=== PATIENT | female | born 1975 | race Two or more races ===

== ENCOUNTER 2017-05-15 12:30 | Emergency (ER) | payer OTHER ==
[2017-05-15] MEDS ORDERED: Lidocaine 2% VISCOUS* 15 ML UDC PO ONE (14:42)
[2017-05-15] MEDS ORDERED: Clindamycin CAP* 150 MG PO ONE (14:48)
--- NOTE | 2017-05-15 14:54 | UC ---
Dental HPI - HPI Summary HPI Summary: 42n y/o female with ~10 day h/o dental pain, worse R>L, upper teeth, no fever, chills, currently residing in safe house. no recent dental visits, pain with hot, cold foods. no chest pain, N/V. denies discharge in mouth. Patient also believes she is 5 months due to increased abdominal swelling. Has not had menses for 5 months. Has not had check up for abdominal bloating, no + urine testing, and no medical evaluation. Patient states she has a h/o brain tumor for which she wants no treatment and refused treatment in the past + vitamins, tylenol. - History of Current Complaint Chief Complaint: UCDentalProblem Stated Complaint: DENTAL PAIN Time Seen by Provider: 05/15/17 14:27 Hx Obtained From: Patient Hx Last Menstrual Period: 11/17 Onset/Duration: Sudden Onset, Lasting Days Severity: Severe Aggravating: Chewing Alleviating: OTC Meds - oralgel Related History: Swelling - Allergies/Home Medications Allergies/Adverse Reactions: Allergies Allergy/AdvReac Type Severity Reaction Status Date / Time Erythromycin Allergy Bleeding Verified 05/15/17 13:02 Home Medications: Home Medications Acetaminophen [Acetaminophen Extra Stren] 500 mg PO 05/15/17 [History] Albuterol HFA INHALER* [Ventolin HFA Inhaler*] 1 puff INH Q4H PRN 05/15/17 [ History Confirmed 05/15/17] Vitamin [Calna] 1 tab PO 05/15/17 [History] PMH/Surg Hx/FS Hx/Imm Hx Previously Healthy: No - h/o mrkh syndrome per patient - Surgical History Surgical History: None - Social History Alcohol Use: None Substance Use Type: None Smoking Status (MU): Light Every Day Tobacco Smoker Type: Cigarettes Review of Systems ENT: Dental Pain, Ear Ache - R sided, base of ear All Other Systems Reviewed And Are Negative: Yes Physical Exam Triage Information Reviewed: Yes Appearance: Well-Appearing, No Pain Distress, Well-Nourished Vital Signs: Initial Vital Signs Temp 99.0 F 05/15/17 12:55 Pulse 74 05/15/17 12:55 Resp 18 05/15/17 12:55 BP 137/104 05/15/17 12:55 Pulse Ox 100 05/15/17 12:55 Vital Signs Reviewed: Yes Eyes: Positive: Conjunctiva Clear ENT: Positive: Pharynx normal, TMs normal Dental: Positive: Percussion Tenderness @ - multiple teeth with fractures, gross decay., Dental Fracture @ - multipls locations upper and lower, Cervical Lymphadenopathy - minimal submand. Neck: Positive: Supple, Nontender Respiratory: Positive: Lungs clear, Normal breath sounds, No respiratory distress, No accessory muscle use, Crackles - b/l Lungs Cardiovascular: Positive: RRR, No Murmur, Pulses Normal, Brisk Capillary Refill Abdomen Description: Positive: Nontender, No Organomegaly, Soft, Other: - no fundal hieght palpated. + fluid sign, non-tender to deep palpation Musculoskeletal Exam: Normal Musculoskeletal: Positive: Strength Intact, ROM Intact Neurological Exam: Normal Psychological Exam: Normal - patient alert, oriented, answers questions appropriately Skin Exam: Normal Dental Complaint Course/Dx - Course Course Of Treatment: dental caries with toothache, gingivitis. clindamycin given, swish and spit, patient will relief with vis. lidocaine, has follow up with Salome Shah, discussed case with Dr. Whittington. Patient does not wish to transfer to ER for further imaging and do not have US on site currently. - Differential Dx/Diagnosis Differential Diagnosis/Dx: Dental Abscess, Dental Caries, Fractured Tooth Provider Diagnoses: dental caries, dental fractures. Discharge - Discharge Plan Condition: Good Disposition: HOME Prescriptions: Clindamycin Cap(NF) [Clindamycin Cap 300 mg Cap(NF)] 300 mg PO Q6H #40 cap Lidocaine 2% VISCOUS* [Xylocaine 2% Viscous*] 15 ml SWISH SPIT Q4H PRN #1 btl PRN Reason: Pain Patient Education Materials: Gingivostomatitis (ED), Toothache (ED) Referrals: No Primary Care Phys,NOPCP [Primary Care Provider] - Additional Instructions: - Follow up with dentist within 2-5 days for evaluation - Take antibiotics as directed - Lidocaine swish and spit for pain control orally- DO NOT SWALLOW - Tylenol as needed for pain control - Follow up with Dr. Shah for medical management regarding abdominal bloating
== END 2017-05-15 16:13 | disposition home or self-care (01) ==
LOC: UCEAST 12:30
DX: K02.9 Dental caries, unspecified (principal); S02.5XXA Fracture of tooth (traumatic), initial encounter for closed fracture; Y92.9 Unspecified place or not applicable; Z32.02 Encounter for pregnancy test, result negative; D49.6 Neoplasm of unspecified behavior of brain; Z72.0 Tobacco use
CPT/HCPCS: 84702; 99202; 99203; A9270-GY; G0463

== ENCOUNTER 2017-10-10 11:21 | Emergency (ER) | payer OTHER ==
--- OUTSIDE RECORDS SUMMARY | 2017-10-10 11:40 | XMS REPORT ---
:1975 External Reference #:[id number] Author Organization [facility] Address [address] [address] Phone [phone] Care Team Providers Name Role Phone Patricia Hauser MD Primary Care Physician Unavailable Payers Type Date Identification Numbers Payment Provider Subscriber Commercial Policy Number: [id number] [employer] Name: [id number] [address] PayID: [id number] [place] [address] Problems Description No Information Family History Date Family Member(s) Problem(s) Comments Father Cancer Mother Diabetes Social History Type Date Description Comments Marital Status ETOH Use Denies alcohol use Smoking Light tobacco smoker (10 or fewer cigarettes/day) Recreational Drug Use Denies Drug Use Has used IV drugs Daily Caffeine Consumes on average 3 cups of regular coffee per day Exercise Type/Frequency Exercises regularly Allergies, Adverse Reactions, Alerts Date Description Reaction Status Severity Comments 05/24/2017 Erythromycin active Medications Medication Date Status Form Strength Qnty SIG Indications Ordering Provider Ventolin HFA 05/24/ Active Aerosol 108(90Base 18unit 2 puffs Shakeel 2016 ) mcg/Act s by mouth ALFONSO Shah four times a day as needed Lidocaine 05/24/ Active 1 tsp q 4 Shakeel 2017 hours as ALFONSO Shah needed Omeprazole 05/24/ Active Capsules 40mg 30caps 1 by R10.[address] tmi Shah NP every day Nitroglycerin / Active Tablets 0.4mg 30tabs 1 sl Shakeel 0000 Sub q5mins x3 ALFONSO Shah as needed for chest pain Clindamycin HCL / Active Capsules 300mg 1 tabs by Unknown 0000 mouth Q 6 hours x 10 days Tylenol 00/00/ Active Capsules 325mg 2 tablets Unknown 0000 every 4 hours as needed for pain Vital Signs Date Vital Result Comment 09/27/2017 Weight 196.00 lb Heart Rate 76 /min BP Systolic 110 mmHg BP Diastolic 66 mmHg Body Temperature 98.1 F O2 % BldC Oximetry 97 % 05/24/2017 Height 70 inches 5'10" Weight 185.00 lb Heart Rate 86 /min BP Systolic 124 mmHg BP Diastolic 84 mmHg Body Temperature 98.9 F O2 % BldC Oximetry 98 % BMI (Body Mass Index) 26.5 kg/m2 Results Description No Information Procedures Description No Information Encounters Type Date Location Provider CPT E/M Dx Office Visit 05/24/2017 3:00p [facility] [address] [place] [address] K08.89 [place] R19.5 R10.9 Plan of Care 09/27/2017 - Shakeel Shah, NPR00.2 PalpitationsNew Orders:EKGHolter MonitorComments:For your palpitations I am ordering some labs and would like you to do a holter monitor. This is a device that you will wear for 24 hours that will monitor your hearts activity. If you have palpitations that are not subsiding or are associated with singificant blurred vision, dizziness, shortness of breath, nausea, or chest pain seek medical attention.R40.0 SomnolenceReferral:[facility], Sleep [facility]ord,Diag/HrjijaY60.9 Chest pain, unspecifiedNew Orders:Stress Test, Treadmill, No ThdufnnH65.02 Shortness of breath
[2017-10-10 12:05] LABS: ABS Basophils 0.1 10^3/ul (0-0.2); ABS Eosinophils 0.3 10^3/ul (0-0.6); ABS Lymphocytes 2.3 10^3/ul (1.0-4.8); ABS Monocytes 0.7 10^3/ul (0-0.8); ABS Neutrophils 5.4 10^3/ul (1.5-7.7); ABS Nucleated RBC 0 10^3/ul; Eosinophil % 3.8 % (0-6); Hematocrit 45 % (35-47); Hemoglobin 15.7 g/dl (12.0-16.0); Lymphocyte % 25.5 % (25-47); Mean Corpuscular HGB Conc 35 g/dl (31-36); Mean Corpuscular Hemoglobin 31 pg (27-31); Mean Corpuscular Volume 89 fL (80-97); Mean Platelet Volume 8 um3 (7.4-10.4); Nucleated Red Blood Cells % 0; Platelet Count 215 10^3/ul (150-450); Red Blood Count 5.12 10^6/ul (4.0-5.4); Red Cell Distribution Width 14 % (10.5-15); White Blood Count 8.8 10^3/ul (3.5-10.8)
[2017-10-10 12:20] LABS: EGFR Non-African American 69.3 (>60)
[2017-10-10 12:31] LABS: Urine Appearance Clear; Urine Blood Negative (Negative); Urine Color Yellow; Urine Ketones Negative (Negative); Urine Protein Negative (Negative); Urine Specific Gravity 1.012 (1.010-1.030); Urine Urobilinogen Negative (Negative)
--- NOTE | 2017-10-10 14:26 | ED ---
Chapin Campo Julia, scribed for Elijah Sheldon MD on 10/10/17 at 1200 . Abdominal Pain/Female - HPI Summary HPI Summary: This patient is a 42 year old F BIBA to [facility] with a chief complaint of sudden R flank pain this morning after urination. Patient reports bladder filing. Patient denies pain with urination, discharge, or hematuria. Pt states hx of MO. Denies hx of kidney stones. - History of Current Complaint Chief Complaint: EDUrogenitalProblems Stated Complaint: FLANK PAIN Hx Obtained From: Patient Onset/Duration: Sudden Onset, Still Present Timing: Constant Pain Intensity: 0 Location: Flank - R Character: Tearing - "ripping" Aggravating Factor(s): Other: - urination Allergies/Adverse Reactions: Allergies Allergy/AdvReac Type Severity Reaction Status Date / Time MS Erythromycin Allergy Bleeding Verified 05/15/17 13:02 [Erythromycin] PMH/Surg Hx/FS Hx/Imm Hx Cardiovascular History: Reports: Hx Myocardial Infarction Respiratory History: Reports: Hx Asthma, Hx Chronic Obstructive Pulmonary Disease (COPD) - Cancer History Cancer Type, Location and Year: brain CA Infectious Disease History: No Infectious Disease History: Denies: Traveled Outside the [place] in Last 30 Days - Family History Known Family History: Positive: Diabetes - Social History Alcohol Use: reports in recovery Substance Use Type: Reports: Cocaine, Marijuana, Synthetic Drugs, Other Substance Use Comment - Amount & Last Used: 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 Smoking Status (MU): Light Every Day Tobacco Smoker Type: Cigarettes Review of Systems Positive: Abdominal Pain - R flank Genitourinary: Other - "bladder filling" Negative: dysuria, discharge, hematuria All Other Systems Reviewed And Are Negative: Yes Physical Exam - Summary Physical Exam Summary: Appearance: Well-appearing, Well-nourished, no pain, transsexual with breat implants Skin: Warm, Dry, No rash Eyes: Normal, PERRL, EOMI, sclera anicteric ENT: Normal Neck: Supple, nontender Respiratory: Clear to auscultation Cardiovascular: S1, S2, no murmur, no rub, no gallop Abdomen: Soft, nontender, no organomegaly, protuberant abdomen Bowel sounds: Present Musculoskeletal: Normal, Strength/ROM Intact, no edema, pulses symmetrical Neurological: Normal, A&Ox3, cranial nerves II-XII WNL, follows commands, gait not tested, sensation intact to pin and light touch Psychiatric: affect normal, behavior appropriate, dressed appropriately, judgment intact Triage Information Reviewed: Yes Vital Signs On Initial Exam: Initial Vitals Temp Pulse Resp BP Pulse Ox 98.8 F 71 18 130/97 98 10/10/17 11:23 10/10/17 11:23 10/10/17 11:23 10/10/17 11:23 10/10/17 11:23 Vital Signs Reviewed: Yes Diagnostics - Vital Signs Vital Signs Temp Pulse Resp BP Pulse Ox 10/10/17 11:23 98.8 F 71 18 130/97 98 - Laboratory Lab Results: Lab Results 10/10/17 10/10/17 10/10/17 Range/Units 11:56 11:56 12:05 WBC 8.8 (3.5-10.8) 10^3/ul RBC 5.12 (4.0-5.4) 10^6/ul Hgb 15.7 (12.0-16.0) g/dl Hct 45 (35-47) % MCV 89 (80-97) fL MCH 31 (27-31) pg MCHC 35 (31-36) g/dl RDW 14 (10.5-15) % Plt Count 215 (150-450) 10^3/ul MPV 8 (7.4-10.4) um3 Neut % (Auto) 61.5 (38-83) % Lymph % (Auto) 25.5 (25-47) % Graves % (Auto) 7.8 (1-9) % Eos % (Auto) 3.8 (0-6) % Baso % (Auto) 1.4 (0-2) % Absolute Neuts (auto) 5.4 (1.5-7.7) 10^3/ul Absolute Lymphs (auto) 2.3 (1.0-4.8) 10^3/ul Absolute Monos (auto) 0.7 (0-0.8) 10^3/ul Absolute Eos (auto) 0.3 (0-0.6) 10^3/ul Absolute Basos (auto) 0.1 (0-0.2) 10^3/ul Absolute Nucleated RBC 0 10^3/ul Nucleated RBC % 0 Sodium 137 (133-145) mmol/L Potassium 4.4 (3.5-5.0) mmol/L Chloride 106 (101-111) mmol/L Carbon Dioxide 25 (22-32) mmol/L Anion Gap 6 (2-11) mmol/L BUN 17 (6-24) mg/dL Creatinine 0.90 (0.51-0.95) mg/dL Est GFR ( Amer) 89.2 (>60) Est GFR (Non-Af Amer) 69.3 (>60) BUN/Creatinine Ratio 18.9 (8-20) Glucose 91 (70-100) mg/dL Calcium 9.8 (8.6-10.3) mg/dL Total Bilirubin 0.40 (0.2-1.0) mg/dL AST 12 L (13-39) U/L ALT 17 (7-52) U/L Alkaline Phosphatase 29 L (34-104) U/L Total Protein 7.0 (6.4-8.9) g/dL Albumin 4.4 (3.2-5.2) g/dL Globulin 2.6 (2-4) g/dL Albumin/Globulin Ratio 1.7 (1-3) Urine Color Yellow Urine Appearance Clear Urine pH 6.0 (5-9) Ur Specific [place] 1.012 (1.010-1.030) Urine Protein Negative (Negative) Urine Ketones Negative (Negative) Urine Blood Negative (Negative) Urine Nitrate Negative (Negative) Urine Bilirubin Negative (Negative) Urine Urobilinogen Negative (Negative) Ur Leukocyte Esterase Negative (Negative) Urine Glucose Negative (Negative) Result Diagrams: 10/10/17 11:56 10/10/17 11:56 Lab Statement: Any lab studies that have been ordered have been reviewed, and results considered in the medical decision making process. Re-Evaluation - Re-Evaluation 1 Re-Evaluation Time: 01:52 Change: Unchanged - Reviewed results with pt Abdominal Pain Fem Course/Dx - Course Course Of Treatment: Pt presents with sudden R flank pain beginning this morning. Patient denies pain with urination, discharge, or hematuria. Labs, bloodwork and UA are unremarkable. Pt is discharged with diagnosis of low back pain. - Diagnoses Provider Diagnoses: Low back pain Discharge - Discharge Plan Condition: Fair Disposition: HOME Discharge Disposition Comment: home Patient Education Materials: Low Back Strain (ED) Referrals: Shakeel Shah NP [Primary Care Provider] - The documentation as recorded by the Chapin clement Julia accurately reflects the service I personally performed and the decisions made by me, Elijah Sheldon MD.
[2017-10-10 16:49] VITALS: BP 0/0
== END 2017-10-10 14:45 | disposition home or self-care (01) ==
LOC: ED 11:21
DX: R10.84 Generalized abdominal pain (principal); M54.5 Low back pain; I25.2 Old myocardial infarction; F17.210 Nicotine dependence, cigarettes, uncomplicated
CPT/HCPCS: 36415; 80053; 81003; 85025; 87491; 87591; 99282

== ENCOUNTER 2018-07-10 14:41 | Emergency (ER) | payer OTHER ==
--- OUTSIDE RECORDS SUMMARY | 2018-07-10 15:07 | XMS REPORT ---
:1975 External Reference #:[id number] Author Organization [employer] Address [address] [place] [address] Phone [phone] Care Team Providers Name Role Phone Patricia Hauser MD Primary Care Physician Unavailable Payers Type Date Identification Numbers Payment Provider Subscriber Commercial Policy Number: [id number] [employer] Number: [id number] [address] PayID: [id number] [place] [address] Problems Date Description Provider Status Onset: 01/23/2018 Obstructive sleep apnea Symone Baumann DNP, PAN, Active syndrome 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 Potassium 07/04/ by mouth 2018 twice daily for 10 days Fluticasone 06/24/ Hx Suspension 50mcg/Act 16uni 2 sprays J01.90 Ileana Propionate 2018 - ts each Varn, N.P. 07/08/ nostril 2018 daily as needed Amlodipine 10/15/ Active Tablets 10mg 90tab 1 by I10 Farzad Blair Besylate 2017 s mouth Ballard, DO every [facility] day Ventolin HFA 05/24/ Active Aerosol 108(90Base 18uni 2 puffs Shakeel 2016 ) mcg/Act ts by mouth ALFONSO Shah four times a day as needed Omeprazole 05/24/ Active Capsules DR 40mg 30cap 1 by R10.9 Patricia 2017 s mouth Cotton, every M.D. day Nitroglycerin / Active Tablets Sub 0.4mg 30tab 1 sl Shakeel 0000 s q5mins ALFONSO Shah x3 as needed for chest pain (not taking) Tylenol / Active Capsules 325mg 2 Unknown 0000 tablets every 4 hours as needed for pain Lidocaine 05/24/ Hx 1 tsp q Shakeel 2016 - 4 hours ALFONSO Shah 10/28/ as 2018 needed Clindamycin HCL / Hx Capsules 300mg 1 tabs Unknown 0000 - by mouth 10/28/ Q 6 2018 hours x 10 days Trazodone HCL / Hx Tablets 50mg 1 tablet Unknown 0000 - at 01/22/ bedtime 2018 as needed Vital Signs Date Vital Result Comment 06/24/2018 Height 69.5 inches 5'9.50" Weight 202.00 lb Heart Rate 79 /min BP Systolic 122 mmHg BP Diastolic 80 mmHg Body Temperature 97.3 F O2 % BldC Oximetry 97 % BMI (Body Mass Index) 29.4 kg/m2 04/01/2018 Height 69.5 inches 5'9.50" Weight 195.00 lb Heart Rate 62 /min BP Systolic Sitting 131 mmHg BP Diastolic Sitting 92 mmHg O2 % BldC Oximetry 98 % BMI (Body Mass Index) 28.4 kg/m2 01/23/2018 Height 69.5 inches 5'9.50" Weight 190.38 lb Heart Rate 78 /min BP Systolic Sitting 128 mmHg Lue reg cuff BP Diastolic Sitting 100 mmHg Lue reg cuff Respiratory Rate 18 /min O2 % BldC Oximetry 96 % On Ra BMI (Body Mass Index) 27.7 kg/m2 11/20/2017 Height 69.5 inches 5'9.50" Weight 196.00 lb Heart Rate 60 /min BP Systolic Sitting 112 mmHg BP Diastolic Sitting 66 mmHg Respiratory Rate 14 /min O2 % BldC Oximetry 98 % BMI (Body Mass Index) 28.5 kg/m2 Neck Circumference in inches 16 10/29/2017 Height 69.5 inches 5'9.50" Weight 195.00 lb Heart Rate 62 /min BP Systolic Sitting 128 mmHg Lue reg cuff BP Diastolic Sitting 88 mmHg Lue reg cuff BP Systolic Standing 126 mmHg Lue reg cuff BP Diastolic Standing 92 mmHg Lue reg cuff Respiratory Rate 18 /min BMI (Body Mass Index) 28.4 kg/m2 10/15/2017 Height 69.5 inches 5'9.50" Weight 195.00 lb Heart Rate 92 /min BP Systolic 130 mmHg Rue reg cuff BP Diastolic 100 mmHg Rue reg cuff BP Systolic Sitting 130 mmHg Lue reg cuff BP Diastolic Sitting 104 mmHg Lue reg cuff BP Systolic Standing 134 mmHg Lue BP Diastolic Standing 100 mmHg Lue Respiratory Rate 16 /min BMI (Body Mass Index) 28.4 kg/m2 10/12/2017 Height 70 inches 5'10" Weight 197.50 lb Heart Rate 70 /min BP Systolic 136 mmHg 2 cups of coffee, 2 cigarettes BP Diastolic 82 mmHg 2 cups of coffee, 2 cigarettes Body Temperature 97.4 F O2 % BldC Oximetry 95 % BMI (Body Mass Index) 28.3 kg/m2 09/27/2017 Weight 196.00 lb Heart Rate 76 /min BP Systolic 110 mmHg BP Diastolic 66 mmHg Body Temperature 98.1 F O2 % BldC Oximetry 97 % 05/24/2017 Height 70 inches 5'10" Weight 185.00 lb Heart Rate 86 /min BP Systolic 124 mmHg BP Diastolic 84 mmHg Body Temperature 98.9 F O2 % BldC Oximetry 98 % BMI (Body Mass Index) 26.5 kg/m2 Results Test Date Test Result H/L Range Note GC/Chlamydia Amplified 10/10/2017 Chlamydia trachomatis Negative Negative Rna Rna Neisseria gonorrhoeae (GC) Rna Negative Negative Urinalysis Profile 10/10/2017 Urine Color Yellow Urine Appearance Clear Urine Specific [place] 1.012 1.010-1.030 Urine pH 6.0 5-9 Urine Urobilinogen Negative Negative Urine Ketones Negative Negative Urine Protein Negative Negative Urine Leukocytes Negative Negative Urine Blood Negative Negative Urine Nitrite Negative Negative Urine Bilirubin Negative Negative Urine Glucose Negative Negative CBC Auto Diff 10/10/2017 White Blood Count 8.8 10^3/uL 3.5-10.8 Red Blood Count 5.12 10^6/uL 4.0-5.4 Hemoglobin 15.7 g/dL 12.0-16.0 Hematocrit 45 % 35-47 Mean Corpuscular Volume 89 fL 80-97 Mean Corpuscular Hemoglobin 31 pg 27-31 Mean Corpuscular HGB Conc 35 g/dL 31-36 Red Cell Distribution Width 14 % 10.5-15 Platelet Count 215 10^3/uL 150-450 Mean Platelet Volume 8 um3 7.4-10.4 Abs Neutrophils 5.4 10^3/uL 1.5-7.7 Abs Lymphocytes 2.3 10^3/uL 1.0-4.8 Abs Monocytes 0.7 10^3/uL 0-0.8 Abs Eosinophils 0.3 10^3/uL 0-0.6 Abs Basophils 0.1 10^3/uL 0-0.2 Abs Nucleated RBC 0 10^3/uL Granulocyte % 61.5 % 38-83 Lymphocyte % 25.5 % 25-47 Monocyte % 7.8 % 1-9 Eosinophil % 3.8 % 0-6 Basophil % 1.4 % 0-2 Nucleated Red Blood Cells % 0 Comp Metabolic Panel 10/10/2017 Sodium 137 mmol/L 133-145 Potassium 4.4 mmol/L 3.5-5.0 Chloride 106 mmol/L 101-111 Co2 Carbon Dioxide 25 mmol/L 22-32 Glucose 91 mg/dL 70-100 Blood Urea Nitrogen 17 mg/dL 6-24 Creatinine 0.90 mg/dL 0.51-0.95 BUN/Creatinine Ratio 18.9 8-20 Calcium 9.8 mg/dL 8.6-10.3 Total Protein 7.0 g/dL 6.4-8.9 Albumin 4.4 g/dL 3.2-5.2 Globulin 2.6 g/dL 2-4 Albumin/Globulin Ratio 1.7 1-3 Total Bilirubin 0.40 mg/dL 0.2-1.0 Alkaline Phosphatase 29 U/L Low 34-104 Alt 17 U/L 7-52 Ast 12 U/L Low 13-39 Egfr Non- 69.3 >60 Egfr 89.2 >60 1 Anion Gap 6 mmol/L 2-11 CBC Auto Diff 10/02/2017 White Blood Count 6.8 10^3/uL 3.5-10.8 Red Blood Count 5.23 10^6/uL 4.0-5.4 Hemoglobin 16.3 g/dL High 12.0-16.0 Hematocrit 47 % 35-47 Mean Corpuscular Volume 89 fL 80-97 Mean Corpuscular Hemoglobin 31 pg 27-31 Mean Corpuscular HGB Conc 35 g/dL 31-36 Red Cell Distribution Width 14 % 10.5-15 Platelet Count 206 10^3/uL 150-450 Mean Platelet Volume 9 um3 7.4-10.4 Abs Neutrophils 3.7 10^3/uL 1.5-7.7 Abs Lymphocytes 2.2 10^3/uL 1.0-4.8 Abs Monocytes 0.5 10^3/uL 0-0.8 Abs Eosinophils 0.3 10^3/uL 0-0.6 Abs Basophils 0.1 10^3/uL 0-0.2 Abs Nucleated RBC 0 10^3/uL Granulocyte % 54.7 % 38-83 Lymphocyte % 32.3 % 25-47 Monocyte % 7.4 % 1-9 Eosinophil % 4.6 % 0-6 Basophil % 1.0 % 0-2 Nucleated Red Blood Cells % 0.1 Comp Metabolic Panel 10/02/2017 Sodium 138 mmol/L 133-145 Potassium 4.3 mmol/L 3.5-5.0 Chloride 105 mmol/L 101-111 Co2 Carbon Dioxide 25 mmol/L 22-32 Anion Gap 8 mmol/L 2-11 Glucose 109 mg/dL High 70-100 Blood Urea Nitrogen 14 mg/dL 6-24 Creatinine 1.01 mg/dL High 0.51-0.95 BUN/Creatinine Ratio 13.9 8-20 Calcium 9.7 mg/dL 8.6-10.3 Total Protein 7.0 g/dL 6.4-8.9 Albumin 4.5 g/dL 3.2-5.2 Globulin 2.5 g/dL 2-4 Albumin/Globulin Ratio 1.8 1-3 Total Bilirubin 0.60 mg/dL 0.2-1.0 Alkaline Phosphatase 34 U/L 34-104 Alt 19 U/L 7-52 Ast 12 U/L Low 13-39 Egfr Non- 60.7 >60 Egfr 78.1 >60 2 Laboratory test finding 10/02/2017 B-Type Natriuretic Peptide BNP 12 pg/mL 3 Magnesium 2.4 mg/dL 1.9-2.7 TSH (Thyroid Stim Horm) 1.16 mcIU/mL 0.34-5.60 D Dimer Quantitative < 200 ng/mL Less Than 230 4 Laboratory test finding 10/02/2017 Testosterone Total 305.14 ng/dL High 8- 60 Laboratory test finding 10/02/2017 Estradiol 58 pg/mL 5 Creatinine 10/02/2017 Creatinine 1.02 mg/dL High 0.51-0.95 Egfr Non- 60.0 >60 Egfr 77.2 >60 6 Liver Function Panel 10/02/2017 Total Protein 7.0 g/dL 6.4-8.9 Albumin 4.6 g/dL 3.2-5.2 Globulin 2.4 g/dL 2-4 Albumin/Globulin Ratio 1.9 1-3 Total Bilirubin 0.60 mg/dL 0.2-1.0 Direct Bilirubin 0.00 mg/dL Low 0.03-0.18 Alkaline Phosphatase 33 U/L Low 34-104 Alt 19 U/L 7-52 Ast 13 U/L 13-39 Lipid Profile (Trig/Chol/HDL) 10/02/2017 Triglycerides 274 mg/dL 7 Cholesterol 230 mg/dL 8 HDL Cholesterol 40.8 mg/dL 9 LDL Cholesterol 134 mg/dL 10 Order 09/27/2017 EKG <pending> 1 Because ethnic data is not always readily available, this report includes an eGFR for both -Americans and non- Americans. The National Kidney Disease Education Program (NKDEP) does not endorse the use of the MDRD equation for patients that are not between the ages of 18 and 70, are , have extremes of body size, muscle mass, or nutritional status, or are non- or non-. According to the National Kidney Foundation, irrespective of diagnosis, the stage of the disease is based on the level of kidney function: Stage Description GFR(mL/min/1.73 m(2)) 1 Kidney damage with normal or decreased GFR 90 2 Kidney damage with mild decrease in GFR 60-89 3 Moderate decrease in GFR 30-59 4 Severe decrease in GFR 15-29 5 Kidney failure <15 (or dialysis) 2 Because ethnic data is not always readily available, this report includes an eGFR for both -Americans and non- Americans. The National Kidney Disease Education Program (NKDEP) does not endorse the use of the MDRD equation for patients that are not between the ages of 18 and 70, are , have extremes of body size, muscle mass, or nutritional status, or are non- or non-. According to the National Kidney Foundation, irrespective of diagnosis, the stage of the disease is based on the level of kidney function: Stage Description GFR(mL/min/1.73 m(2)) 1 Kidney damage with normal or decreased GFR 90 2 Kidney damage with mild decrease in GFR 60-89 3 Moderate decrease in GFR 30-59 4 Severe decrease in GFR 15-29 5 Kidney failure <15 (or dialysis) 3 >100 to <200 pg/mL: likely compensated congestive heart failure (CHF) 200 to 400 pg/mL: likely moderate CHF >400 pg/mL: likely moderate to severe CHF 4 Please note: The following may produce a false positive D Dimer test: - Rheumatoid factor greater than 60 IU/ml - Plasma hemoglobin greater than 0.05 gm/dl - Bilirubin greater than 50 mg/dl - Lipids greater than 1000 mg/dl - FDP greater than 20 ug/ml 5 Estradiols <40 pg/mL are sent to a reference lab for low range testing. Postmenopausal Females < 20 Ovulating females: by day in cycle relative to LH Peak Follicular phase - 12 10-50 - 4 60-200 Mid-cycle - 1 120-375 Luteal phase + 2 50-155 + 6 60-260 + 12 15-115 6 Because ethnic data is not always readily available, this report includes an eGFR for both -Americans and non- Americans. The National Kidney Disease Education Program (NKDEP) does not endorse the use of the MDRD equation for patients that are not between the ages of 18 and 70, are , have extremes of body size, muscle mass, or nutritional status, or are non- or non-. According to the National Kidney Foundation, irrespective of diagnosis, the stage of the disease is based on the level of kidney function: Stage Description GFR(mL/min/1.73 m(2)) 1 Kidney damage with normal or decreased GFR 90 2 Kidney damage with mild decrease in GFR 60-89 3 Moderate decrease in GFR 30-59 4 Severe decrease in GFR 15-29 5 Kidney failure <15 (or dialysis) 7 Desirable: <150 Borderline High: 150-199 High: 200-499 Very High: >500 8 Desirable: <200 Borderline High: 200-239 High: >239 9 Low: <40 Desirable: 40-60 High: >60 10 Desirable: <100 Near Optimal: 100-129 Borderline High: 130-159 High: 160-189 Very High: >189 Procedures Date CPT Code Description Status 12/20/2017 07220 Polysomnography Sleep Staging 4+ Parameters Completed 10/15/2017 22427 EKG Tracing & Interpretation Completed 10/07/2017 78447 Holter Monitor Review (24 hr)dr review & interp only Completed 10/02/2017 36093 ECG Monitor/Recording W/Visual Superimposition Scanning Completed 10/02/2017 38018 Treadmill Interp/Report Only Completed 10/02/2017 26178 Stress Test Supervsn W/Out I/R Completed 09/27/2017 44426 EKG Tracing & Interpretation Completed Encounters Type Date Location Provider CPT E/M Dx Office Visit 04/01/2018 [facility] Internal Medicine Patricia Hauser, [address] M54.32 9:00a - Lynn Dominguez Z72.0 Office Visit 01/23/2018 2:15p [facility] Symone Baumann, [address] G47.33 [facility] DNP, RN, 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 WORK PROFESSOR-BC R09.02 F17.210 Office Visit 11/20/2017 2:30p [facility] [place] [address] G47.9 [facility] F43.10 G47.50 Office Visit 10/29/2017 1:30p [facility] [place] [address] I10 Office Visit 10/15/2017 1:00p [facility] Farzad Ballard, [address]02 R07.9 DO FACC I50.9 I10 Z72.0 Office Visit 10/12/2017 1:00p [facility] [place] [address] R35.0 [place] R03.0 M89.8x8 R10.811 Office Visit 09/27/2017 4:20p [facility] [place] [address] R00.2 [place] R40.0 R07.9 R06.02 Office Visit 05/24/2017 3:00p [facility] [place] [address] K08.89 [place] R19.5 R10.9 Plan of Care 06/24/2018 - Ileana Schmid N.P.J01.90 Acute sinusitis, unspecifiedNew Medication:Amoxicillin/Clavulanate Potassium 875-125 mgFluticasone Propionate 50 mcg/ActComments:For your sinus infection: I sent a prescription for Augmentin to the pharmacy. Take 1 tablet every 12 hours until they are gone. Take this with a little food. I also sent a prescription for a steroid based nasal spray. Use 2 inhalations in each nostril once daily until your infection has cleared.If your symptoms do not improve call the office.R05 CoughComments: To further evaluate your cough I have ordered a chest Xray. The office will contact you with your results.Z72.0 Tobacco useComments:I urge you to continue your efforts to quit smoking.
--- NOTE | 2018-07-10 17:50 | ED ---
Throat Pain/Nasal Congestion - History of Current Complaint Chief Complaint: EDDentalPain Time Seen by Provider: 07/10/18 16:18 Hx Obtained From: Patient - Allergies/Home Medications Allergies/Adverse Reactions: Allergies Allergy/AdvReac Type Severity Reaction Status Date / Time erythromycin base Allergy Bleeding Verified 07/10/18 18:08 PMH/Surg Hx/FS Hx/Imm Hx Previously Healthy: Yes Cardiovascular History: Reports: Hx Myocardial Infarction Respiratory History: Reports: Hx Asthma, Hx Chronic Obstructive Pulmonary Disease (COPD) - Cancer History Cancer Type, Location and Year: brain CA Infectious Disease History: No Infectious Disease History: Denies: Traveled Outside the [place] in Last 30 Days - Family History Known Family History: Positive: Diabetes - Social History Occupation: Unemployed Lives: With Family Alcohol Use: None Substance Use Type: Reports: None Substance Use Comment - Amount & Last Used: 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 sitting up in bed in NAD. Skin: Positive: Warm, Dry Head/Face: Positive: Normal Head/Face Inspection Eyes: Positive: Normal, EOMI Dental: Positive: Other - Poor dentition throughout with numerous dental caries. Fractured right bottom last molar. Gums on right lower are red and swollen. No drainable abscess noted. No facial swelling. No trismus or submandibular edema. Neck: Positive: Supple, Nontender, No Lymphadenopathy Neurological: Positive: Normal, CN Intact II-III Psychiatric: Positive: Affect/Mood Appropriate Diagnostics - Vital Signs Vital Signs Temp Pulse Resp BP Pulse Ox 07/10/18 14:56 98.4 F 70 14 161/103 98 - Laboratory Lab Statement: Any lab studies that have been ordered have been reviewed, and results considered in the medical decision making process. EENT Course/Dx - Course Course Of Treatment: Pt. presenting for dental pain. Afebrile and well appearing. Will start on pen vk and naproxen. Pt. requesting topical lidocaine for pain, magic mouth wash rx. Advised to call a dentist tomorrow for close f.u. To return to ER if sxs change or worsen. - Differential Diagnoses Differential Diagnoses: Dental Abscess, Dental Caries, Fractured Tooth, Gingivitis, Pharyngitis - Diagnoses Provider Diagnoses: Dentalgia, Dental caries Discharge - Sign-Out/Discharge Documenting (check all that apply): Patient Departure - Discharge Plan Condition: Good Disposition: HOME Prescriptions: Magic Mouth Was-NEO/MAAL/LIDO* 5 ml SWISH SPIT QID #60 ml Naproxen [Naproxen 500 mg tab] 500 mg PO Q12H #20 tablet Penicillin VK 500 MG TAB(NF) [Penicillin VK 500 mg Tab] 500 mg PO QID #40 tab Patient Education Materials: Toothache (ED) Referrals: Patricia Hauser MD [Primary Care Provider] - Additional Instructions: Schedule a follow up appointment with a dentist Take medication as directed Apply warm compresses to face Return to ER If symptoms change or worsen - Billing Disposition and Condition Condition: GOOD Disposition: Home
[2018-07-10 18:30] VITALS: BP 135/87
[2018-07-11] MEDS ORDERED: Magic Mouth Was-BEN/MAAL/LIDO SWISH SPIT SCH (09:00)
== END 2018-07-10 18:29 | disposition home or self-care (01) ==
LOC: ED 14:41
DX: K02.9 Dental caries, unspecified (principal); K08.89 Other specified disorders of teeth and supporting structures
CPT/HCPCS: 99282; A9270-GY

== ENCOUNTER 2018-12-24 06:16 | Emergency (ER) | payer OTHER ==
[2018-12-24] MEDS ORDERED: Lidocaine 2% VISCOUS* 15 ML UDC SWISH SPIT ONE (06:21)
[2018-12-24 06:22] VITALS: BP 144/94
[2018-12-24] MEDS ORDERED: Cephalexin CAP* 500 MG PO ONE (06:22)
[2018-12-24] MEDS ORDERED: Ketorolac INJ* 60 MG/2 ML VIAL IM ONE (06:22)
--- NOTE | 2018-12-24 06:56 | ED ---
Throat Pain/Nasal Congestion - HPI Summary HPI Summary: Patient is a 43-year-old female who presents to the ED with right lower jaw pain since yesterday. She denies any swelling or erythema. She was diagnosed with a dental infection once in the past and given naproxen as well as Keflex. This improved her symptoms. She states she is unable to sleep due to pain. She states she called the ambulance as she is unable to ride with just anyone due to "witness protection." Patient denies any other symptoms at this time. 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 She denies any fevers, sweats, chills. She states she has naproxen at home, however this has not been helping her pain. - History of Current Complaint Chief Complaint: EDDentalPain Time Seen by Provider: 12/24/18 06:20 Hx Obtained From: Patient Onset/Duration: Sudden Onset Severity: Moderate Associated Signs And Symptoms: Positive: Negative - Epiglottits Risk Factors Epiglottis Risk Factors: Negative - Allergies/Home Medications Allergies/Adverse Reactions: Allergies Allergy/AdvReac Type Severity Reaction Status Date / Time erythromycin base Allergy Bleeding Verified 07/10/18 18:08 Home Medications: Home Medications Estradiol 0.025 patch TRANSDERM Q72HR 12/24/18 [History Confirmed 12/24/18] Spironolactone 100 mg PO DAILY 12/24/18 [History Confirmed 12/24/18] PMH/Surg Hx/FS Hx/Imm Hx Previously Healthy: Yes Cardiovascular History: Reports: Hx Myocardial Infarction Respiratory History: Reports: Hx Asthma, Hx Chronic Obstructive Pulmonary Disease (COPD) - Cancer History Cancer Type, Location and Year: brain CA - Immunization History Hx Pertussis Vaccination: No Immunizations Up to Date: Yes Infectious Disease History: No Infectious Disease History: Denies: Traveled Outside the [place] in Last 30 Days - Family History Known Family History: Positive: Diabetes - Social History Occupation: Employed Full-time Lives: Alone Alcohol Use: None Hx Substance Use: No Substance Use Type: Reports: None Substance Use Comment - Amount & Last Used: 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 Smoking Status (MU): Light Every Day Tobacco Smoker Type: Cigarettes Review of Systems Constitutional: Negative Negative: Fever, Chills, Fatigue, Skin Diaphoresis Positive: Dental Pain Negative: Palpitations, Chest Pain Negative: Shortness Of Breath, Cough Genitourinary: Negative Positive: no symptoms reported, see HPI Negative: Myalgia Skin: Negative Neurological: Negative All Other Systems Reviewed And Are Negative: Yes Physical Exam Triage Information Reviewed: Yes Vital Signs On Initial Exam: Initial Vitals Temp Pulse Resp BP Pulse Ox 98.9 F 89 18 144/94 97 12/24/18 06:17 12/24/18 06:17 12/24/18 06:17 12/24/18 06:17 12/24/18 06:17 Vital Signs Reviewed: Yes Appearance: Positive: Well-Appearing, Well-Nourished Skin: Positive: Warm, Skin Color Reflects Adequate Perfusion Head/Face: Positive: Normal Head/Face Inspection Eyes: Positive: EOMI, Conjunctiva Clear Neck: Positive: Supple, No Lymphadenopathy Respiratory/Lung Sounds: Positive: Clear to Auscultation, Breath Sounds Present Cardiovascular: Positive: RRR, Pulses are Symmetrical in both Upper and Lower Extremities Musculoskeletal: Positive: Strength/ROM Intact Neurological: Positive: Speech Normal Psychiatric: Positive: Normal, Affect/Mood Appropriate Diagnostics - Vital Signs Vital Signs Temp Pulse Resp BP Pulse Ox 12/24/18 06:17 98.9 F 89 18 144/94 97 - Laboratory Lab Statement: Any lab studies that have been ordered have been reviewed, and results considered in the medical decision making process. EENT Course/Dx - Course Course Of Treatment: Patient is evaluated for right lower dental pain. Patient has been diagnosed with a dental abscess in the past and given Keflex and naproxen which helped her symptoms. She states she's been taking the naproxen without improvement. On physical examination, there is pain over the right lower canine without erythema or swelling. No pain to the jaw otherwise. She is endorsing radiation of pain down into the neck, however there is no neck tenderness on palpation. Lungs CTA, RRR. Patient appears well and otherwise nontoxic in appearing. Vital signs are stable. She is given Magic mouthwash, Toradol and Keflex in the ED. Prescriptions were sent for these. She is okay for discharge at this time and voices no concerns. - Diagnoses Provider Diagnoses: Pain, dental Discharge - Sign-Out/Discharge Documenting (check all that apply): Patient Departure Patient Received Moderate/Deep Sedation with Procedure: No - Discharge Plan Condition: Good Disposition: HOME Patient Education Materials: Toothache (ED) Referrals: Patricia Hauser MD [Primary Care Provider] - Additional Instructions: Take your next dose of Keflex between noon and 4pm and again before bed Keflex 3 times daily x 7 days Toradol up to four times daily for pain - do NOT TAKE ANY NSAIDS WHILE TAKING THIS MEDICATION INCLUDING YOUR NAPROXEN Magic Mouthwash four times daily for discomfort - Billing Disposition and Condition Condition: GOOD Disposition: Home
== END 2018-12-24 06:45 | disposition home or self-care (01) ==
LOC: ED 06:16 → EDSEX 06:16 → ED 06:45
DX: K08.89 Other specified disorders of teeth and supporting structures (principal); Z85.841 Personal history of malignant neoplasm of brain; I25.2 Old myocardial infarction; J44.9 Chronic obstructive pulmonary disease, unspecified; F17.210 Nicotine dependence, cigarettes, uncomplicated
CPT/HCPCS: 96372; 99282; A9270-GY; J1885

== ENCOUNTER 2019-03-06 12:13 | Emergency (ER) | payer OTHER ==
[2019-03-06 12:49] VITALS: BP 117/60
--- NOTE | 2019-03-06 13:14 | UC ---
Respiratory Complaint HPI - HPI Summary HPI Summary: Cough fever x 1 wk with worsening cough last night. Pt still feels like they have a fever. not able to eat. urinating normally. - History of Current Complaint Chief Complaint: UCRespiratory Stated Complaint: CONGESTION COUGH Time Seen by Provider: 03/06/19 13:11 Hx Obtained From: Patient Hx Last Menstrual Period: 11/17 Pain Intensity: 0 Character: Cough: Productive Associated Signs And Symptoms: Positive: Fever, URI - Allergies/Home Medications Allergies/Adverse Reactions: Allergies Allergy/AdvReac Type Severity Reaction Status Date / Time erythromycin base Allergy Bleeding Verified 07/10/18 18:08 PMH/Surg Hx/FS Hx/Imm Hx Previously Healthy: Yes - Surgical History Surgical History: None - Family History Known Family History: Positive: Diabetes - Social History Alcohol Use: None Substance Use Type: None Substance Use Comment - Amount & Last Used: 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 Smoking Status (MU): Light Every Day Tobacco Smoker Type: Cigarettes Review of Systems All Other Systems Reviewed And Are Negative: Yes Constitutional: Positive: Fever Respiratory: Positive: Cough Cardiovascular: Positive: Negative Gastrointestinal: Negative: Vomiting, Diarrhea Neurological: Negative: Headache Physical Exam Triage Information Reviewed: Yes Appearance: Well-Appearing Vital Signs: Initial Vital Signs Temp 97.8 F 03/06/19 12:46 Pulse 82 03/06/19 12:46 Resp 17 03/06/19 12:46 BP 117/60 03/06/19 12:46 Pulse Ox 98 03/06/19 12:46 Vital Signs Reviewed: Yes Respiratory: Positive: No respiratory distress, No accessory muscle use, Crackles - LLL, Other: - productive cough during visit. Negative: Rhonchi, Stridor, Wheezing Cardiovascular Exam: Normal Respiratory Course/Dx - Course Course Of Treatment: Worsening cough and fever in a smoker. Vitals good, exam significant for crackles. Reviewed comfort measures for illness and discussed how to use/take meds. When asked about her allergy there was thought that pt. had a GI bleed while receiving erythromycin and it was unclear if the allergy was true or not. - Differential Dx/Diagnosis Differential Diagnosis/HQI/PQRI: Influenza, Lower Resp Infection, Sinusitis Provider Diagnosis: Lower respiratory infection Discharge - Sign-Out/Discharge Documenting (check all that apply): Patient Departure All imaging exams completed and their final reports reviewed: No Studies - Discharge Plan Condition: Good Disposition: HOME Prescriptions: Albuterol HFA INHALER* [Ventolin HFA Inhaler*] 1 - 2 puff INH Q4H PRN #1 mdi PRN Reason: Cough Azithromycin TAB* [Zithromax TAB (Z-JOCELINE) 250 mg #6 tabs] 2 tab PO .TODAY, THEN 1 DAILY #1 joceline Patient Education Materials: Bacterial Pneumonia (ED) Referrals: Patricia Hauser MD [Primary Care Provider] - Additional Instructions: If no improvement please follow up with your primary care. Smoking makes this worse so please consider stopping. - Billing Disposition and Condition Condition: GOOD Disposition: Home
== END 2019-03-06 13:45 | disposition home or self-care (01) ==
LOC: EDSEX 12:13 → UCEAST 12:13
DX: J06.9 Acute upper respiratory infection, unspecified (principal); F17.210 Nicotine dependence, cigarettes, uncomplicated
CPT/HCPCS: 99212; G0463

== ENCOUNTER 2019-11-13 14:40 | Emergency (ER) | payer OTHER ==
--- OUTSIDE RECORDS SUMMARY | 2019-11-13 14:48 | XMS REPORT | Continuity of Care Document ---
:1975 External Reference #:[id number] Author Name Shakeel Shah NP (transmitted by agent of provider Cathy Muñoz) Address [address], [address] [place] [id number] Care Team Providers Name Role Phone Patricia Hauser MD - Internal Care Team Information Drug And Alcohol Counselor [phone] Medicine Problems Active Problems Provider Date Obstructive sleep apnea syndrome Symone Baumann DNP, RN, FLOODPLAIN MANAGER-BC Onset: Hypoxemia Symone Baumann DNP, RN, FLOODPLAIN MANAGER-BC Onset: 01/23/2018 Hypersomnia Symone Baumann DNP, RN, FLOODPLAIN MANAGER-BC Onset: 01/23/2018 Drug abuse Shakeel Shah NP Onset: 07/16/2019 Gender identity disorder Shakeel Shah NP Onset: 07/16/2019 Essential hypertension Shakeel Shah NP Onset: 07/16/2019 Social History Type Date Description Comments Sex Unknown ETOH Use Denies alcohol use Tobacco Use Start: Unknown Light tobacco smoker (10 or fewer cigarettes/day) Recreational Drug Use Denies Drug Use Has used IV drugs Rehab at [facility] in 2019 Smoking Status Reviewed: 09/25/19 Light tobacco smoker (10 or fewer cigarettes/day) Exercise Type/Frequency Exercises regularly walking Allergies, Adverse Reactions, Alerts Active Allergies Reaction Severity Comments Date Erythromycin 05/24/2017 Medications Active Medications SIG Qnty Indications Ordering Date Provider Depend Underwear change three 90units R32 Shakeel Shah NP 09/25/2019 Small/Medium Extra times daily as Absorbency Female needed Misc Spironolactone 100mg once 90tabs Alessandro Tay MD 10/15/2018 100mg daily Tablets Estradiol 1 patch changed 24units Alessandro Tay MD 10/15/2018 0.025mg/24HR twice weekly Patches Biweek Ventolin HFA 2 puffs by 18units Shakeel Shah NP 05/24/2017 108(90Base) mouth four mcg/Act Aerosol times a day as needed Omeprazole take one 30caps R10.9 Shakeel Shah NP 05/24/[address] capsule by mouth once daily Clonidine HCL ER QHS Unknown 0.1mg Tablets ER 12HR Hydroxyzine HCL QHS Unknown 25mg Tablets Immunizations Description No Information Available Vital Signs Date Vital Result Comment 09/25/2019 3:05pm Height 69.5 inches 5'9.50" Weight 179.00 lb Heart Rate 72 /min BP Systolic 125 mmHg BP Diastolic 77 mmHg Body Temperature 98.7 F O2 % BldC Oximetry 98 % BMI (Body Mass Index) 26.1 kg/m2 07/16/2019 10:24am Height 69.5 inches 5'9.50" Weight 161.00 lb Heart Rate 88 /min BP Systolic 114 mmHg BP Diastolic 75 mmHg Body Temperature 98.4 F O2 % BldC Oximetry 97 % BMI (Body Mass Index) 23.4 kg/m2 Results Description No Information Available Procedures Description No Information Available Medical Devices Description No Information Available Encounters Type Date Location Provider Dx Diagnosis Office Visit 07/16/2019 Engine Lathe Set Up Operator Tool Internal Shakeel Shah NP F11.10 Opioid abuse, 10:20a Medicine - Ccmob uncomplicated I10 Essential (primary) hypertension R07.9 Chest pain, unspecified M54.32 Sciatica, left side Z72.0 Tobacco use G47.33 Obstructive sleep apnea (adult) (pediatric) F43.10 Post-traumatic stress disorder, unspecified 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 Assessments Date Code Description Provider 09/25/2019 Z72.0 Tobacco use Shakeelvibha Shah NP 09/25/2019 G47.30 Sleep apnea, unspecified Shakeel ALFONSO Shah 09/25/2019 M54.5 Low back pain Shakeelvibha Shah NP 09/25/2019 R32 Unspecified urinary incontinence Shakeel ALFONSO Shah 07/16/2019 F11.10 Opioid abuse, uncomplicated Shakeel Alyssa [employer] 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 07/16/2019 I10 Essential (primary) hypertension Shakeel Shah NP 07/16/2019 R07.9 Chest pain, unspecified Shakeel ALFONSO Shah 07/16/2019 M54.32 Sciatica, left side Shakeel Shah NP 07/16/2019 Z72.0 Tobacco use Shakeel Shah NP 07/16/2019 G47.33 Obstructive sleep apnea (adult) (pediatric) Shakeel Shah NP 07/16/2019 F43.10 Post-traumatic stress disorder, unspecified Shakeel Shah NP 07/16/2019 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 Shakele Shah NP Plan of Treatment 09/25/2019 - Shakeel Shah NPZ72.0 Tobacco useComments:If you decide you would like to quit smoking and want assistance please let me know.G47.30 Sleep apnea, unspecifiedReferral:[facility], Sleep [facility]ord,Diag/EiffncF37.5 Low back painNew Therapy:Physical QirtnegI23 Unspecified urinary incontinenceNew Medication:Depend Underwear Small/Medium Extra Absorbency Female - change three times daily as neededReferral:Veto Zee MD, Urology Functional Status Description No Information Available Mental Status Description No Information Available Referrals Refer to Reason for Referral Status Appt Date [facility] Created [address] [place] [address] [phone] Veto Zee MD Created [address] [place] [address] [phone]
[2019-11-13 15:46] VITALS: BP 122/88
[2019-11-13 18:14] LABS: Influenza A Molecular Negative (Negative); Influenza B Molecular Negative (Negative)
[2019-11-13] MEDS ORDERED: Amoxicillin PO (*) 500 MG CAP PO ONE ×2 (18:35→18:36)
--- NOTE | 2019-11-13 18:37 | UC ---
Throat Pain/Nasal Awais HPI - HPI Summary HPI Summary: 44-year-old female comes in with chief complaint of upper respiratory tract infection symptoms for several days. She has a sore throat. As minimal rhinorrhea. Does have fatigue and body aches. No recent travel. Does have a cough. - History of Current Complaint Chief Complaint: UCGeneralIllness Stated Complaint: CONGESTED Time Seen by Provider: 11/13/19 17:41 Hx Last Menstrual Period: 11/17 Pain Intensity: 4 - Allergies/Home Medications Allergies/Adverse Reactions: Allergies Allergy/AdvReac Type Severity Reaction Status Date / Time erythromycin base Allergy Bleeding Verified 11/13/19 15:47 Home Medications: Home Medications Spironolactone 100 mg PO DAILY 12/24/18 [History Confirmed 11/13/19] estradioL [Estradiol] 0.025 patch TRANSDERM Q72HR 12/24/18 [History Confirmed ] Albuterol HFA INHALER* [Ventolin HFA Inhaler*] 1 - 2 puff INH Q4H PRN #1 mdi 12/20 [Rx Confirmed 11/13/19] Amoxicillin PO (*) [Amoxicillin 500 MG CAP*] 500 mg PO TID #28 cap 11/13/19 [Rx] PMH/Surg Hx/FS Hx/Imm Hx Previously Healthy: Yes - Surgical History Surgical History: Yes Surgery Procedure, Year, and Place: toe reattachment - Family History Known Family History: Positive: Diabetes - Social History Alcohol Use: None Substance Use Type: None Substance Use Comment - Amount & Last Used: in recovery as of 08/08 reports poly substance abuse Smoking Status (MU): Light Every Day Tobacco Smoker Type: Cigarettes Review of Systems All Other Systems Reviewed And Are Negative: Yes Constitutional: Positive: Other - SEE HPI Skin: Positive: Negative Eyes: Positive: Negative ENT: Positive: Sore Throat, Nasal Discharge, Sinus Congestion Respiratory: Positive: Cough Cardiovascular: Positive: Negative Gastrointestinal: Positive: Negative Motor: Positive: Negative Neurovascular: Positive: Negative Musculoskeletal: Positive: Myalgia Psychological: Positive: Negative Is Patient Immunocompromised?: No Physical Exam Triage Information Reviewed: Yes Appearance: No Pain Distress, Well-Nourished, Ill-Appearing - MILD Vital Signs: Initial Vital Signs Temp 98.5 F 11/13/19 15:42 Pulse 88 03/12/20 15:42 Resp 16 11/13/19 15:42 BP 122/88 11/13/19 15:42 Pulse Ox 98 11/13/19 15:42 Vital Signs Reviewed: Yes Eye Exam: Normal Eyes: Positive: Conjunctiva Clear ENT: Positive: Pharyngeal erythema, Nasal congestion, TMs normal Neck: Positive: Supple Respiratory: Positive: Lungs clear, Normal breath sounds, No respiratory distress Cardiovascular: Positive: RRR Musculoskeletal: Positive: Strength Intact, ROM Intact Neurological: Positive: Alert, Muscle Tone Normal Psychological: Positive: Age Appropriate Behavior Skin Exam: Normal Throat Pain/Nasal Course/Dx - Course Course Of Treatment: DISCUSSED VIRAL VERSES BACTERIAL INFECTIONS AND THE ROLE OF ANTIBIOTICS. PATIENT PREFERS TO BE ON ANTIBIOTICS AT THIS TIME. - Differential Dx/Diagnosis Provider Diagnosis: Pharyngitis, Upper respiratory infection Discharge ED - Sign-Out/Discharge Documenting (check all that apply): Patient Departure All imaging exams completed and their final reports reviewed: No Studies - Discharge Plan Condition: Stable Disposition: HOME Prescriptions: Amoxicillin PO (*) [Amoxicillin 500 MG CAP*] 500 mg PO TID #28 cap Patient Education Materials: Pharyngitis (ED), Upper Respiratory Infection (ED) Referrals: Shakeel Shah NP [Primary Care Provider] - Additional Instructions: FOLLOW UP WITH YOUR DOCTOR IF NOT COMPLETELY IMPROVED. GET REVALUATED SOONER IF NOT IMPROVED OR WORSE OR ANY QUESTIONS OR CONCERNS. - Billing Disposition and Condition Condition: STABLE Disposition: Home
== END 2019-11-13 18:38 | disposition home or self-care (01) ==
LOC: UCEAST 14:40
DX: J02.9 Acute pharyngitis, unspecified (principal); J06.9 Acute upper respiratory infection, unspecified; F17.210 Nicotine dependence, cigarettes, uncomplicated; Z88.1 Allergy status to other antibiotic agents
CPT/HCPCS: 87651; 99212; A9270-GY; G0463